=== PATIENT | female | born 1955 | race Caucasian/White ===

== ENCOUNTER 2019-08-04 09:55 | Outpatient (CLI) | payer OTHER ==
--- NOTE | 2019-08-04 12:54 | Diagnostic Imaging Report ---
PATIENT MR#: [id number] PATIENT PATIENT NAME: CHLOE VEGA DATE OF : 1955 REFERRING PHYSICIAN: Fior Baez EXAM DATE: 08/04/2019 ACCESSION NUMBER: [id number] EXAM DESCRIPTION: L SPINE 4 VIEWS CLINICAL HISTORY: CHRONIC LOW BACK PAIN COMPARISON: No relevant comparison is available at the time of interpretation. L-SPINE XRAY, 7 views including obliques and flexion - extension: Vertebral bodies: 30% anterior wedge compression fracture of T12. No lumbar compression deformities. Disc spaces: Mild degenerative disc narrowing at L2-3, L3-4 and L4-5. Alignment: 17? levoscoliosis centered at L3. Grade 1 left lateral listhesis of L4 over L5. Normal everett mbar lordosis. Grade 1 anterolisthesis of L4 over L5, which corrects with extension. Facets: Degenerative arthrosis at L3-4, L4-5 and L5-S1. Right upper quadrant: Cholecystectomy clips. Aorta: Calcifications are noted within the vessels indicating an element of arteriosclerosis. IMPRESSION: 1. 30% anterior wedge compression fracture of T12, of uncertainty acuity given the absence of prior s tudies for comparison. 2. 17? lumbar levoscoliosis. 3. Grade 1 left lateral listhesis and grade 1 anterolisthesis of L4 over L5 in flexion, which correct s with extension. 4. Multilevel degenerative disc disease, mild at L2-3, L3-4 and L4-5. 5. Low lumbar facet arthrosis. Read by: Dr. Escobar Pastor Transcribed by: Escobar Pastor Transcribed Date: 08/04/2019 12:53:29 PM Electronically signed by: Dr. Escobar Pastor Date signed: 08/04/2019 12:54:23 PM
--- NOTE | 2019-08-04 12:59 | Diagnostic Imaging Report ---
PATIENT MR#: [id number] PATIENT PATIENT NAME: CHLOE VEGA DATE OF : 1955 REFERRING PHYSICIAN: Fior Baez EXAM DATE: 08/04/2019 ACCESSION NUMBER: [id number] EXAM DESCRIPTION: PELVIS AP 1 OR 2 VIEWS CLINICAL HISTORY: CHRONIC HIP/PELVIC PAIN COMPARISON: No relevant comparison is available at the time of interpretation. PELVIS XRAY, FRONTAL VIEW: Low lumbar spine: Grade 1 left lateral listhesis of L4 over L5. Pelvic bone: Intact appearance. Pelvic soft tissue: No calcifications along the expected course of the ureters. Hips: No fracture or dislocation. Minimal arthritic changes in the form of small acetabular osteophy tony. IMPRESSION: Minimal hip arthrosis. Read by: Dr. sEcobar Pastor Transcribed by: Escobar Pastor Transcribed Date: 08/04/2019 12:59:12 PM Electronically signed by: Dr. Escobar Pastor Date signed: 08/04/2019 12:59:26 PM
--- NOTE | 2019-08-10 17:44 | CONSULTATION REPORT ---
DATE OF VISIT: 08/04/2019 CHIEF COMPLAINT: Low back pain. HISTORY OF PRESENT ILLNESS: Mrs. Granger is a 63-year-old female patient here for initial evaluation of her low back pain. She has had low back pain for years without any known incident that started her pain. She complains of her low back pain being constant sharp and shooting in nature. She does have posterior radiation bilaterally down to the toes. However, she notices most of the pain in her posterior calves. She also has numbness in her calves. She does complain of bilateral lower extremity weakness, describing her legs as heavy and fatiguing easily. She denies any urinary incontinence, bowel incontinence or saddle anesthesia. The patient tells me that 70% of her pain is in her legs versus 30% of the pain which is in her back. Her pain is worse with standing, walking, sitting too long and recently she has been waking in the night and first thing in the morning with worse pain in her legs. She also occasionally has worse low back pain after having a bowel movement. Her pain is improved with rest and pain medication. Past treatment, she has had injections from what the patient describes sound like epidural steroid injections in February and March of this year. She did have two injections without any significant improvement therefore the third injection was not performed. She did have physical therapy last year for three weeks, however, this caused worsening pain and was stopped. She does tell me that she has continued a home exercise program as prescribed by the physical therapist up until this point. She has never had any emergency care attendant. She also has not had any recent imaging. At present the patient is taking Percocet 10/325 mg q.i.d. for her pain symptoms with improvement. She denies any medication side effects or concerns. She does tell me today that she is interested in getting her medical marijuana card. I did discuss with her that if she does so and is able to use medical marijuana that we would not want her to be on opiates in addition to the medical marijuana. She did verbalize understanding of this. PAST MEDICAL HISTORY: Includes anxiety, arthritis, back pain. She had a complete hysterectomy for uterine cancer, depression, type 2 diabetes, seizures, fibromyalgia, GERD, hypertension, hyperlipidemia, high triglycerides, irritable bowel syndrome, joint pain, migraine/headaches, hypothyroidism. PAST SURGICAL HISTORY: Includes a cholecystectomy in 2003, complete hysterectomy in 1993, tonsillectomy in and appendectomy in . SOCIAL HISTORY: The patient is . Occupation is [employer]. Number of pregnancies is 3, live births 2, miscarriage/abortions 1. The patient is a current smoker of one pack per day x 30 years. Patient denies ETOH and denies recreational drugs. FAMILY HISTORY: Mother with cancer, father with cancer, hypertension, [place], heart disease and hyperlipidemia. Paternal grandfather with cancer. CURRENT MEDICATIONS: Buspirone 30 mg p.o. b.i.d., aspirin 81 mg q day, glucosamine 500 mg p.o. b.i.d., magnesium 200 mg p.o. q day, [employer]-3 fatty acids 1000 one cap p.o. daily, metformin 500 mg p.o. b.i.d., duloxetine 60 mg p.o. b.i.d., pravastatin 20 mg q day, topiramate 25 mg, two tabs p.o. b.i.d., Zetia 10 mg one tab p.o. q.h.s., trazodone 150 mg two tabs p.o. q.h.s. p.r.n. insomnia, clonazepam 0.5 mg tabs one tab p.o. t.i.d. p.r.n. (the patient tells me that she only takes this twice a day) and Percocet 10/325 mg one p.o. q 6h p.r.n. pain. DRUG ALLERGIES: Include warfarin reaction is a rash, lamotrigine reaction is rash, levetiracetam, reaction is fatigue, dizziness and diarrhea, Lyrica suicidal and Wellbutrin throat swells. REVIEW OF SYSTEMS: A complete 14-point review of systems was completed and was positive for the following, fatigue, weakness, weight gain/loss, rashes, ringing in ears, frequent sore throat, pain with swallowing, nasal congestion, blurred vision, glasses, chronic cough, night sweats, constipation, stomach pain, difficult urination, frequent urination, frequent night urination, panic attacks, bipolar disorder, anxiety, depression, headaches, tremors, seizures, arm and leg weakness, memory loss, sensitivity of hands and feet, increased thirst, neck pain and joint pain. OBJECTIVE: General: This is a well-developed, well-nourished elderly female patient presenting in no acute distress. Vital Signs: Temperature is 97.0, pulse is 79, respiratory rate is 18, blood pressure 120/75 with an SaO2 of 96% on room air. She is rating her pain an 8/10 today. Her height is 5 feet 5 inches tall and she weighs 158 pounds. Psych: She is alert and oriented x3. She is calm, pleasant and cooperative. HEENT: She is normocephalic and atraumatic. Sclerae clear. Pupils are equal and round without miosis. Trachea is midline. No lymphadenopathy or thyromegaly. CV: Normal S1, S2. Regular rate and rhythm. No gallops, rubs, or murmurs. Pulmonary: Nonlabored respirations. Clear to auscultation throughout bilaterally. GI: Abdomen is soft, nondistended and nontender with bowel sounds present in all four quadrants. : Deferred. Musculoskeletal: The patient has generalized lumbar facet tenderness to palpation, however, is significantly worse at the L5-S1 level. She is also tender to palpation over her lower lumbar paraspinals. Left SI is slightly tender to palpation. The patient achieves full lumbar flexion. Lumbar extension is full with end range pain. Bilateral Layne's is positive for axial low back pain only. Seated straight leg raise is negative. Bilateral lower extremity strength is equal and strong in hip flexion, knee extension, knee flexion, plantar flexion and dorsiflexion. She initially had a poor effort when testing her left lower extremity strength. She does walk with an antalgic gait. Neurologic: Cranial nerves II through XII are grossly intact. Bilateral patellar reflexes are 1+. Sensation to light touch is intact bilateral lower extremities. ASSESSMENT: 1. Lumbago. 2. Lumbar radiculitis versus radiculopathy. PLAN: 1. I have ordered an x-ray of the L spine with flexion, extension. 2. I have ordered an x-ray AP pelvis. 3. I have ordered MRI of the L spine without contrast, which the patient wants to have done at [place]. 4. The patient is to continue her home exercise program for her low back. 5. The patient is to follow up just as soon as she can get her MRI completed and she is to bring the disk. Fior Baez, LEENurse Practitioner /[employer] [id number] hrd cc: [facility]
== END 2019-08-04 10:55 ==
LOC: OUT 09:55
PROVIDERS: ATTEND Nurse Practitioner Adult Health
DX: M54.5 Low back pain (principal)
CPT/HCPCS: 72110; 72170

== ENCOUNTER 2019-09-01 14:52 | Outpatient (CLI) | payer OTHER ==
--- NOTE | 2019-09-14 15:26 | OP Clinic Progress Note ---
DATE OF VISIT: 09/01/2019 CHIEF COMPLAINT: Low back pain. HISTORY OF PRESENT ILLNESS: Mrs. Granger is a 63-year-old female patient here for followup low back pain. Her low back pain has been present for years without any known incident that started her pain symptoms. She complains of low back pain that is constant, sharp and shooting in nature. She does have posterior radiation bilaterally down to the toes, left is greater than right. She does notice most of the pain in her posterior calves, however. She has numbness in her calves as well. She does complain of bilateral lower extremity weakness, describing that her legs feel heavy and fatigue easily. The patient denies any urinary incontinence, bowel incontinence or saddle anesthesia. The patient tells me today that 50% of her pain is localized to her back and 50% is localized to her legs. Her pain is worse with standing, walking, sitting too long and recently she has been waking in the night and first thing in the morning with worse pain in her legs. She also occasionally has worse low back pain after having a bowel movement. Her pain is improved with rest and pain medications. At last visit, I ordered x-rays and MRI, which have been reviewed today. The patient has continued on Percocet with improvement in her pain symptoms. She denies any medication side effects or concerns. PFSH: Reviewed and unchanged. REVIEW OF SYSTEMS: A complete 14-point review of systems was completed and positive for fatigue, weakness, weight gain/loss, rashes, ringing in her ears, frequent sore throat, pain with swelling, nasal congestion, blurred vision, glasses, chronic cough, night sweats, constipation, stomach pain, difficult urination, frequent urination, frequent night urination, panic attacks, bipolar disorder, anxiety, depression, headaches, tremors, seizures, arm/leg weakness, memory loss, sensitivity in the hands and feet, increased thirst, neck pain and joint pain as well as low back pain. OBJECTIVE: General: This is a well-developed, well-nourished elderly female patient presenting in no acute distress. Vital Signs: The patient is 5 feet 5 inches tall, weighs 157 pounds. Temperature is 99.1, pulse 86, respiratory rate 18, blood pressure is 132/77 with an SaO2 of 96% on room air. She is rating her pain at 8/10 today. Psych: She is alert and oriented x3. She is calm, pleasant and cooperative. HEENT: She is normocephalic and atraumatic. Pupils are equal and round without miosis. Sclerae clear. Musculoskeletal: The patient continues to have generalized lumbar facet tenderness to palpation, significantly worse at the L5-S1 level. She is also tenderness to palpation over her lumbar paraspinals. Left SI joint is slightly tender to palpation. Bilateral Layne's is positive for axial low back pain only. Seated straight leg raise is negative. Bilateral lower extremity strength is equal and strong in hip flexion, knee extension, knee flexion, plantar flexion and dorsiflexion, all graded 5/5. Neuro: Cranial nerves II through XII are grossly intact. Sensation to light touch is intact bilateral lower extremities. Gait is antalgic. IMAGING REVIEWED: The patient did have an x-ray of the lumbar spine completed here in [place] on 08/04/2019. Impression: 1. A 30% anterior wedge compression fracture of the T12, uncertainty of acuity given the absence of prior studies for comparison. 2. A 17 degree lumbar levoscoliosis centered at the L3. 3. Grade 1 left lateral listhesis and grade 1 anterolisthesis at L4 over L5 in flexion, which correlates with extension. 4. Multilevel degenerative disc disease, mild at L2-3, L3-4 and L4-5. 5. Lower lumbar facet arthrosis. AP pelvis, again done here at [place] on 08/04/2019. Impression: Minimal hip arthrosis. MRI of the lumbar spine without contrast performed on 08/17/2019 at [facility]. Impression: 1. Mild multilevel DDD and facet arthrosis with ligamentum flavum thickening resulting in no high-grade stenosis of the spinal canal or neural foramina at any level. 2. Chronic appearing T12 compression deformity with mild retropulsion at the superior endplate into the spinal canal, results in no significant spinal canal stenosis or neural foraminal narrowing. 3. No acute fractures. 4. Status post nate with unchanged prominence of the common bile duct, which barely narrows at the ampula. These findings are nonspecific after cholecystectomy. ASSESSMENT: 1. Chronic lumbago. 2. Lumbar DDD. 3. Lumbar facet arthrosis. 4. Lumbar radiculitis versus radiculopathy. PLAN: 1. Today I have provided the patient with refills of Percocet 10/325 mg one p.o. q.i.d. p.r.n. dispense #120 with no refills. May fill on or after 09/14/2019. 2. I have ordered the first set of facet joint injections of the bilateral L3-4, L4-5 and L5-S1 with Dr. Lancaster. 3. The patient is to follow up on 09/29/2019 or sooner if needed. The patient did verbalize understanding and agrees to the current treatment plan. DUDLEY Laurenurse Practitioner /[employer] [id number] jrd JEOVANY
== END 2019-09-01 15:52 ==
LOC: OUT 14:52
PROVIDERS: ATTEND Nurse Practitioner Adult Health
DX: M51.36 Other intervertebral disc degeneration, lumbar region (principal); M47.896 Other spondylosis, lumbar region
CPT/HCPCS: 99213

== ENCOUNTER 2019-10-20 13:55 | Outpatient (CLI) | payer MEDICARE, OTHER ==
--- NOTE | 2019-10-20 22:31 | Diagnostic Imaging Report ---
PATIENT MR#: [id number] PATIENT PATIENT NAME: CHLOE VEGA DATE OF : 1955 REFERRING PHYSICIAN: Fior Baez EXAM DATE: 10/20/2019 ACCESSION NUMBER: [id number] EXAM DESCRIPTION: KNEE 3 VIEWS CLINICAL HISTORY: LEFT KNEE PAIN SINCE HER SURGERY FOR MAKAYLA PLACEMENT 2 YEARS AGO COMPARISON: No study for comparison is available at the time of interpretation. TECHNIQUE: DX left knee and tibia fibula, 5 views Osseous structures: Status post medullary nail ORIF transfixing a healed distal tibial metaphysis fra cture, without fracture or loosening. There is a healed fracture of the proximal fibular metaphysis. Joint spaces: The bones are well aligned, without dislocation. There are two degenerative calcificat ions measuring 16 mm and 13 mm posterior and lateral to the lateral meniscus. There is moderate narrowing of the later al patellofemoral articular space. Soft tissues: There is a mild suprapatellar effusion. IMPRESSION: 1. Status post ORIF tibial fracture, without loosening or complication. 2. Degenerative calcifications adjacent to the lateral meniscus. Consider further evaluation with MRI to exclude meniscal tear or loose intra-articular bodies. Read by: Dr. Escobar Pastor Transcribed by: Escobar Pastor Transcribed Date: 10/20/2019 10:30:15 PM Electronically signed by: Dr. Escobar Pastor Date signed: 10/20/2019 10:30:56 PM
--- NOTE | 2019-10-23 10:27 | OP Clinic Progress Note ---
DATE OF VISIT: 10/20/2019 CHIEF COMPLAINT: 1. Low back pain. 2. Left knee pain. HISTORY OF PRESENT ILLNESS: Ms. Granger is a 64-year-old female patient here for followup of low back pain. Her low back pain has been present for years without any known incident that started her symptoms. She complains of low back pain that is constant, sharp and shooting in nature. She does have fibromyalgia and does have lower extremity pain that has been attributed to her fibromyalgia in the past. The majority of her pain is localized to her low back. The patient denies any urinary incontinence, bowel incontinence or saddle anesthesias. Her low back pain is worse with standing, walking, sitting too long and recently she has been waking in the night and first thing in the morning with worse pain. Her pain symptoms are improved with rest and pain medications. Secondarily, the patient is complaining of significant left knee pain today. Her pain has been present for approximately the last two years, however, has been worse over the last month. She is complaining of popping, buckling and giving out. She is now using a cane to ambulate. She has not been seen for her knee pain in the past by an orthopedist. She has not been utilizing any type of knee brace that she does not have one. She has never had any other pain interventions done either. The patient has continued on Percocet with improvement in her pain symptoms. She denies any medication side effects or concerns. PMFSH: Reviewed and unchanged. REVIEW OF SYSTEMS: Reviewed and unchanged except for now under musculoskeletal she has positive joint pain (left knee pain.) PHYSICAL EXAMINATION: General: This is a well-developed, well-nourished elderly female patient presenting in [facility]. Vital Signs: The patient is 5 feet 5 inches tall, weighs 157 pounds. Temperature is 98.4, pulse 99, respiratory rate 18, blood pressure 125/76 with an SAO2 of 97% on room air. She is rating her pain 9/10 today. Psych: She is alert and oriented x3. She is calm, pleasant and cooperative. HEENT: She is normocephalic and atraumatic. Pupils are equal and round bilaterally without miosis. Sclerae clear. Musculoskeletal: The patient has generalized lumbar facet tenderness to palpation, significantly worse over the L5-S1 level. She also has tenderness to palpation over the lower lumbar paraspinals. On inspection of the left knee there is no obvious swelling or effusion. She has tenderness to palpation along the medial joint line as well as the subpatellar region. Anterior and posterior drawer is negative. Positive varus, valgus stress testing. She has crepitus with range of motion. She is able to achieve full extension and flexion to approximately 135 degrees. Neurologic: Cranial nerves II through XII are grossly intact. Sensation to light touch is intact in the bilateral lower extremities. Gait is antalgic with a straight cane today. ASSESSMENT: 1. Chronic lumbago. 2. Lumbar DDD. 3. Lumbar facet arthrosis. 4. Fibromyalgia. 5. Left knee pain. PLAN: 1. I have ordered a left knee x-ray with a sunrise view. 2. Left knee brace to prevent possible falls related to pain and instability with positive varus valgus testing. 3. I have provided a refill of her Percocet 10/325 mg q.i.d. p.r.n. dispense #120 with no refills. I am starting the patient on meloxicam 7.5 mg b.i.d. with food, dispense #60 with two refills. The patient has been advised to stop this if she has any GI upset. 4. The patient is to continue her home exercise program and I have provided her additional low back exercises. 5. The patient is to complete the facet joint injections as ordered. 6. The patient is to follow up in one month or sooner if needed. The patient verbalizes understanding and agrees with the current treatment plan. DUDLEY Laurenurse Practitioner /[employer] [id number] /mab MTDD
== END 2019-10-20 14:25 ==
LOC: OUT 13:55
PROVIDERS: ATTEND Nurse Practitioner Adult Health
DX: M51.36 Other intervertebral disc degeneration, lumbar region (principal); M47.896 Other spondylosis, lumbar region; M79.7 Fibromyalgia; M25.562 Pain in left knee
CPT/HCPCS: 73562; 99213